=== PATIENT | female | born 1985 | race African-American/Black ===

== ENCOUNTER 2017-03-25 04:04 | Emergency (ER) | payer OTHER ==
[~2017-03-25 04:04] MED LIST: VOLTAREN75 MG PO
[2017-03-25 05:01] LABS: URINE SOURCE CLEAN CATCH
[2017-03-25 05:50] LABS: URINE APPEARANCE CLEAR; URINE BILIRUBIN NEG (NEG); URINE BLOOD NEG (NEG); URINE COLOR YELLOW; URINE GLUCOSE NEG (NEG); URINE KETONE NEG (NEG); URINE LEUKOCYTE ESTERASE NEG (NEG); URINE NITRATE NEG (NEG); URINE PH 6.5 (5-8); URINE PROTEIN NEG (NEG); URINE SPECIFIC GRAVITY 1.023 (1.003-1.035)
[2017-03-25 06:21] LABS: CULTURE INDICATED? NO
[2017-03-28 22:07] LABS: CHLAMYDIA TRACH Not Detected (Not Detected); N GONOR Not Detected (Not Detected)
== END 2017-03-25 06:25 | disposition home or self-care (01) ==
LOC: CED 04:04
PROVIDERS: Nurse Practitioner
DX: N76.0 Acute vaginitis (principal); Z90.49 Acquired absence of other specified parts of digestive tract
CPT/HCPCS: 81003; 84703; 87491; 87591; 87808; 87905; 99284